=== PATIENT | female | born 1965 | race Caucasian/White ===

== ENCOUNTER 2019-01-04 15:33 | Emergency (ER) | payer BC, MEDICARE ==
[~2019-01-04] VITALS: Ht 170.2 cm; Wt 85.7 kg
[~2019-01-04 15:33] MED LIST: ABILIFY 5 MG TAB5 M1 PO; ABILIFY PO; ALPRAZOLAM PO; ATIVAN2 MG PO; ATORVASTATIN CA20 MG PO; AUGMENTIN 875-1 EACH PO; BENADRYL25 MG PO; BENTYL20 MG PO; BUSPAR30 MG PO; BUTALB-ACETAMI1 EACH PO; CARAFATE 1 GM TA1 G1 PO; CARAFATE 1 GM TA1 GM; CHANTIX1 MG; CIPRO500 MG PO; CIPRODEX OTIC7.5 ML OTIC; CIPROFLOXACIN; CIPROFLOXACIN500 M1 PO; CIPROFLOXACIN500 M3; CIPROFLOXACIN500 M3 PO; CLARITIN-D 121 EACH PO; CLEOCIN HCL150 MG PO; CLEOCIN HCL300 MG PO; CLONAZEPAM; DARVOCET-N 1001 EACH PO; DETROL LA4 MG PO; DIABETA 2.5MG2.5 MG PO; DIABETA 5MG TABL5 MG; DIFLUCAN150 MG PO; DILANTIN 100 M100 MG PO; ESGIC; FIBERCON CHEWA625 MG PO; FIORICET; FIORICET 50-301 EACH PO; FIORICET 50-321 EACH PO; FIORINAL 50-321 EACH PO; FLAGYL500 M1 PO; FLEXERIL PO; GEODON40 MG; GEODON80 MG PO; GLUCOPHAGE XR500 MG; GLYBURIDE 5 MG T5 M1 PO; HYDROCODONE-AP1 EAC6 PO; IBUPROFEN 800800 M1 PO; IMITREX 25 MG T25 M1 PO; K-DUR 20 MEQ T20 MEQ PO; KEFLEX500 MG PO; KEPPRA 500 MG500 MG PO; KEPPRA1000 MG; KEPPRA250 MG PO; KETOPROFEN50 MG; LAMICTAL XR100 MG PO; LANTUS SQ; LATUDA20 MG; LATUDA40 MG; LISINOPRIL PO; LISINOPRIL-HCT1 EAC1 PO; LISINOPRIL-HCT1 EACH; LISINOPRIL-HCT1 EACH PO; LISINOPRIL2.5 M1; LITHIUM; LUTEIN10 MG; MACROBID 100 M100 M1 PO; MAG-OX 400 TAB400 M1 PO; MEDROL DOSPAK21 TA1 PO; METAMUCIL1 EAC1 PO; MICONAZOLE 7 S100 M1 VAG; MIRALAX17 GM PO; NEURONTIN 300300 M1 PO; NEXIUM OR; NORCO 5-325 TA1 EACH PO; OMEPRAZOLE; PAXIL10 MG PO; PAXIL20 MG PO; PAXIL40 MG; PERCOCET 5-3251 EACH PO; PERCOCET PO; PHENERGAN 25 MG25 M1 PO; PHENERGAN25 MG RE; PREMARIN0.3 MG PO; PRILOSEC40 MG PO; PROZAC20 MG; PYRIDIUM200 MG PO; REGLAN 5 MG TAB5 MG PO; REMERON15 MG PO; RESTORIL; RESTORIL PO; RESTORIL30 MG; ROBAXIN500 MG PO; SEE COMMENTS; SKELAXIN 800 M800 M1 PO; TRAMADOL 50 MG50 MG PO; ULTRAM 50MG TAB50 MG PO; VICODIN 5-3001 EACH PO; VICODIN 5-5001 EACH PO; VICOPROFEN 2001 EACH PO; VIMPAT100 MG; VIMPAT100 MG PO; VISTARIL PO; VITAMINC500 PO; WELLBUTRIN SR150 MG PO; XANAX 0.5 MG0.5 MG PO; XANAX XR1 MG PO; XANAX1 MG PO; ZANTAC 150MG T150 M1 PO; ZESTRIL2.5 MG PO; ZOFRAN 4 MG ORAL4 M1 DIS; ZOFRAN4 MG PO; ZOLOFT 50 MG TA50 M1 PO; ZYRTEC; [UNRECOGNIZED DRUG - OTHER]; [UNRECOGNIZED DRUG - OTHER]; [UNRECOGNIZED DRUG - REMARK]; [UNRECOGNIZED DRUG - REMARK]
[2019-01-04 15:44] VITALS: BP 154/92
[2019-01-04] MEDS ORDERED: PROTONIX 20 MG20 M1 PO (15:48)
[2019-01-04] MEDS ORDERED: KEFLEX500 M1 PO (16:10)
== END 2019-01-04 16:15 | disposition home or self-care (01) ==
LOC: M.ERS 15:33
DX: S91.332A Puncture wound without foreign body, left foot, initial encounter (principal); F17.210 Nicotine dependence, cigarettes, uncomplicated; G43.909 Migraine, unspecified, not intractable, without status migrainosus; E11.43 Type 2 diabetes mellitus with diabetic autonomic (poly)neuropathy; K31.84 Gastroparesis; F41.0 Panic disorder [episodic paroxysmal anxiety]; Z88.8 Allergy status to other drugs, medicaments and biological substances; Z88.5 Allergy status to narcotic agent; Z88.2 Allergy status to sulfonamides; Z90.49 Acquired absence of other specified parts of digestive tract; Z90.710 Acquired absence of both cervix and uterus; W25.XXXA Contact with sharp glass, initial encounter; Y93.89 Activity, other specified; Y92.89 Other specified places as the place of occurrence of the external cause; Y99.8 Other external cause status

== ENCOUNTER 2020-08-09 09:42 | Emergency (ER) | payer BC, MEDICARE ==
[~2020-08-09] VITALS: Ht 170.2 cm; Wt 77.1 kg
[~2020-08-09 09:42] MED LIST changes: +KEFLEX500 M1 PO; +PROTONIX 20 MG20 M1 PO
[2020-08-09 10:23] LABS: ABSOLUTE EOSINOPHILS 0.2 thou/uL (0.0-0.7); ABSOLUTE LYMPHOCYTES 2.7 thou/uL (0.8-5.3); ABSOLUTE MONOCYTES 0.6 thou/uL (0.0-1.2); ABSOLUTE NEUTROPHILS 4.1 thou/uL (1.6-8.1); BASOPHILS 0.5 %; HEMOGLOBIN 14.5 gm/dL (12.0-15.0); LYMPHOCYTES 35.7 %; MCHC 33.8 g/dL (28.0-37.0); MCV 88.9 fL (80.0-100.0); MONOCYTES 7.6 %; MPV 8.6 fl. (7.2-11.1); NUCLEATED RBCS 0 /100WBC; PLATELET COUNT* 225 thou/uL (150-400); POLYS 53.2 %; RBC 4.83 mil/uL (4.20-5.00); RDW-CV 13.3 % (10.5-14.5); WBC 7.7 thou/uL (4.0-11.0)
[2020-08-09 10:30] LABS: URINE BILIRUBIN NEGATIVE (Negative); URINE BLOOD 2+ (Negative); URINE CLARITY CLEAR; URINE COLOR YELLOW; URINE GLUCOSE-RANDOM 2+ (Negative); URINE KETONES TRACE (Negative); URINE LEUKOCYTES-REFLEX 1+ (Negative); URINE NITRITE-REFLEX NEGATIVE (Negative); URINE PROTEIN NEGATIVE (Negative); URINE SPECIFIC GRAVITY >= 1.030 (1.005-1.030); URINE UROBILINOGEN 0.2 E.U./dl (0.2-1.0)
[2020-08-09 10:32] LABS: CREATININE 0.8 mg/dL (0.6-1.3); POTASSIUM 4.2 mmol/L (3.5-5.1)
[2020-08-09 10:37] LABS: ALBUMIN 3.8 g/dL (3.4-5.0); TOTAL BILIRUBIN 0.3 mg/dL (<0.1-1.0); TOTAL PROTEIN 7.4 g/dL (6.4-8.2)
[2020-08-09 10:48] LABS: CASTS None Seen /LPF (None Seen); CRYSTALS None Seen /LPF (None Seen); SQUAMOUS NONE SEEN /LPF (0-3); URINE RBC 0-2 Rare /HPF (0-2); URINE WBC-REFLEX 6-15 Few /HPF (0-5)
[2020-08-09] MEDS ORDERED: CIPROFLOXACIN500 M1 PO (11:08)
[2020-08-09] MEDS ORDERED: NORCO 5-325 TA1 EAC2 PO (11:08)
[2020-08-09] MEDS ORDERED: DIFLUCAN150 MG PO (11:10)
[2020-08-09 11:15] VITALS: BP 116/87
== END 2020-08-09 11:16 | disposition home or self-care (01) ==
LOC: M.ERS 09:42
PROVIDERS: Family Medicine
DX: N39.0 Urinary tract infection, site not specified (principal); G43.909 Migraine, unspecified, not intractable, without status migrainosus; E11.9 Type 2 diabetes mellitus without complications; Z90.49 Acquired absence of other specified parts of digestive tract; Z98.84 Bariatric surgery status; F17.210 Nicotine dependence, cigarettes, uncomplicated; Z90.710 Acquired absence of both cervix and uterus; Z88.8 Allergy status to other drugs, medicaments and biological substances; Z88.6 Allergy status to analgesic agent; Z88.2 Allergy status to sulfonamides; Z79.899 Other long term (current) drug therapy

== ENCOUNTER → 2020-12-31 | Outpatient (CLI) | payer BC, MEDICARE ==
[~2020-12-31] MED LIST changes: +NORCO 5-325 TA1 EAC2 PO
--- NOTE | 2020-12-31 13:57 | 2DMMODE ---
[place] [address] 2 D/M-MODE ECHOCARDIOGRAM Name: NABIL ISIDRO Room: [facility].#: [id number] Admission: 12/31/20 Attend Phys: Emilia Maldonado RN Discharge: Date of : 63 Date of Service: 12/31/20 1357 Report #: [id number] THIS REPORT FOR: cc: Emilia Maldonado Mischelle RNP Holkins, John M. MD [facility] ~ APPROVED REPORT Study performed: 12/31/2020 09:51:46 EXAM: Comprehensive 2D, Doppler, and color-flow Echocardiogram BSA: 1.96 HR: 62 bpm BP: 140/88 mmHg Other Information Study Quality: Fair Indications Murmur 2D Dimensions IVSd: 11.14 (7-11mm) LVOT Diam: 20.87 (18-24mm) LVDd: 45.12 mm PWd: 10.46 (7-11mm) Ascending Ao: 28.03 (22-36mm) LVDs: 21.79 (25-40mm) Aortic Root: 26.41 mm Volumes Left Atrial Volume (Systole) LA ESV Index: 10.20 mL/m2 Aortic Valve AoV Peak Tab.: 1.36 m/s AO Peak Gr.: 7.36 mmHg LVOT Max P.77 mmHg AO Mean Gr.: 3.88 mmHg LVOT Mean P.50 mmHg LVOT Max V: 1.20 m/s AO V2 VTI: 24.62 cm LVOT Mean V: 0.72 m/s KWABENA (VTI): 3.09 cm2 LVOT V1 VTI: 22.22 cm Mitral Valve E/A Ratio: 0.84 MV Decel. Time: 207.19 [place] [address] 2 D/M-MODE ECHOCARDIOGRAM Name: NABIL ISIDRO Room: [facility]#: [id number] Admission: 12/31/20 Attend Phys: Emilia Maldonado RN Discharge: Date of : 63 Date of Service: 12/31/20 1357 Report #: [id number] MV E Max Tab.: 0.64 m/s MV PHT: 60.09 ms MVA (PHT): 3.66 cm2 TDI E/Lateral E': 7.11 E/Medial E': 7.11 Medial E' Tab.: 0.09 m/s Lateral E' Tab.: 0.09 m/s Pulmonary Valve PV Peak Tab.: 1.27 m/s PV Peak Gr.: 6.46 mmHg Left Ventricle The left ventricle is normal size. There is normal LV segmental wall motion. There is normal left ventricular wall thickness. Left ventricular systolic function is normal. The left ventricular ejection fraction is within the normal range. LVEF is 55-60%. Grade I - abnormal relaxation pattern. Right Ventricle The right ventricle is normal size. The right ventricular systolic function is normal. Atria The left atrium size is normal. The right atrium size is normal. Aortic Valve The aortic valve is normal in structure. No aortic regurgitation is present. There is no aortic valvular stenosis. Mitral Valve The mitral valve is normal in structure. There is no mitral valve regurgitation noted. No evidence of mitral valve stenosis. Tricuspid Valve The tricuspid valve is normal in structure. There is no tricuspid valve regurgitation noted. Pulmonic Valve The pulmonary valve is normal in structure. There is no pulmonic valvular regurgitation. Great Vessels The aortic root is normal in size. IVC is normal in size and collapses >50% [place] [address] 2 D/M-MODE ECHOCARDIOGRAM Name: NABIL ISIDRO EDUARDO Room: [facility]#: [id number] Admission: 12/31/20 Attend Phys: Emilia Maldonado RN Discharge: Date of : 63 Date of Service: 12/31/20 1357 Report #: [id number] Pericardium There is no pericardial effusion. <Conclusion> The left ventricle is normal size. There is normal left ventricular wall thickness. Left ventricular systolic function is normal. The left ventricular ejection fraction is within the normal range. LVEF is 55-60%. Grade I - abnormal relaxation pattern. The right ventricle is normal size. The left atrium size is normal. The aortic valve is normal in structure. The mitral valve is normal in structure. The tricuspid valve is normal in structure. IVC is normal in size and collapses >50% with inspiration. There is no pericardial effusion. There is normal LV segmental wall motion. <ELECTRONICALLY SIGNED> By: Andrew Boogie MD, FACC 12/31/20 1357 1357 1357 Andrew Boogie MD, FACC /INF
== END ==
LOC: M.CRD 09:56
PROVIDERS: ATTEND Nurse Practitioner Family
DX: R01.1 Cardiac murmur, unspecified (principal)

== ENCOUNTER 2021-05-06 14:24 | Emergency (ER) | payer BC, MEDICARE ==
[~2021-05-06] VITALS: Ht 170.2 cm; Wt 86.6 kg
[2021-05-06] MEDS ORDERED: LISINOPRIL10 MG (14:36)
[2021-05-06 15:11] LABS: ABSOLUTE BASOPHILS 0.1 thou/uL (0.0-0.2); ABSOLUTE EOSINOPHILS 0.1 thou/uL (0.0-0.7); ABSOLUTE LYMPHOCYTES 2.9 thou/uL (0.8-5.3); ABSOLUTE MONOCYTES 0.6 thou/uL (0.0-1.2); BASOPHILS 0.9 %; EOSINOPHILS 1.5 %; HEMATOCRIT 40.3 % (37.0-47.0); HEMOGLOBIN 14.2 gm/dL (12.0-15.0); LYMPHOCYTES 29.7 %; MCH 29.7 pg (26.0-34.0); MCHC 35.3 g/dL (28.0-37.0); MONOCYTES 6.2 %; MPV 8.1 fl. (7.2-11.1); NUCLEATED RBCS 0 /100WBC; PLATELET COUNT* 238 thou/uL (150-400); POLYS 61.7 %; RBC 4.79 mil/uL (4.20-5.00); RDW-CV 13.3 % (10.5-14.5); WBC 9.7 thou/uL (4.0-11.0)
[2021-05-06 15:19] LABS: URINE BILIRUBIN NEGATIVE (Negative); URINE BLOOD NEGATIVE (Negative); URINE COLOR YELLOW; URINE GLUCOSE-RANDOM NEGATIVE (Negative); URINE KETONES NEGATIVE (Negative); URINE LEUKOCYTES-REFLEX 1+ (Negative); URINE NITRITE-REFLEX NEGATIVE (Negative); URINE PROTEIN NEGATIVE (Negative); URINE UROBILINOGEN 0.2 E.U./dl (0.2-1.0)
[2021-05-06 15:21] LABS: CALCIUM 8.8 mg/dL (8.5-10.1); CREATININE 0.7 mg/dL (0.6-1.3); POTASSIUM 3.4 mmol/L (3.5-5.1)
[2021-05-06 15:22] LABS: URINE CLARITY HAZY
[2021-05-06 15:31] LABS: ALBUMIN 4.2 g/dL (3.4-5.0); TOTAL BILIRUBIN 0.3 mg/dL (<0.1-1.0); TOTAL PROTEIN 7.6 g/dL (6.4-8.2)
[2021-05-06 15:48] LABS: BACTERIA-REFLEX >30 Many /HPF (None Seen); CASTS None Seen /LPF (None Seen); CRYSTALS None Seen /LPF (None Seen); SQUAMOUS 0-3 Few /LPF (0-3); URINE RBC None Seen /HPF (0-2); URINE WBC-REFLEX >25 Many /HPF (0-5)
[2021-05-06 17:39] VITALS: BP 152/75
--- NOTE | 2021-05-07 15:24 | EKG ---
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1965 Requested By: Stefany Gilbert Order Number: [id number] MD: Andrew Boogie Measurements Intervals [place] Rate: 73 P: 46 AR: 149 QRS: 1 QRSD: 104 T: 57 QT: 417 QTc: 460 Interpretive Statements Sinus rhythm Probable left atrial enlargement RSR' in V1 or V2, right VCD Baseline wander in lead(s) V2 Compared to ECG 04/07/2014 09:36:39 RSR' in V1 or V2 persists Electronically Signed On 05-07-2021 15:24:28 CDT by Andrew Boogie [email or web address] <ELECTRONICALLY SIGNED> By: Andrew Boogie MD, [facility] 05/07/21 1524 1504 1504 Andrew Boogie MD, [facility] /EPI
== END 2021-05-06 17:39 | disposition home or self-care (01) ==
LOC: M.ERS 14:24
PROVIDERS: Nurse Practitioner Family
DX: G43.909 Migraine, unspecified, not intractable, without status migrainosus (principal); I10 Essential (primary) hypertension; E11.43 Type 2 diabetes mellitus with diabetic autonomic (poly)neuropathy; K31.84 Gastroparesis; F17.210 Nicotine dependence, cigarettes, uncomplicated; Z88.2 Allergy status to sulfonamides; Z88.5 Allergy status to narcotic agent; Z88.8 Allergy status to other drugs, medicaments and biological substances; Z90.49 Acquired absence of other specified parts of digestive tract; Z90.710 Acquired absence of both cervix and uterus